=== PATIENT | male | born 1980 | race Caucasian/White ===

== ENCOUNTER → 2017-05-27 | Outpatient (CLI) | payer BC ==
[2017-05-27 12:45] LABS: HEMOGLOBIN A1C 5.1 % (4.5-5.6)
== END | disposition home or self-care (01) ==
LOC: C.LAB1850 10:58
PROVIDERS: ATTEND Nurse Practitioner Family
DX: E10.9 Type 1 diabetes mellitus without complications (principal); E03.9 Hypothyroidism, unspecified